=== PATIENT | female | born 1965 | race Caucasian/White ===

== ENCOUNTER 2022-05-26 16:59 | Inpatient (IN) | payer OTHER ==
[~2022-05-26] VITALS: Ht 167.6 cm; Wt 122.5 kg
[2022-05-26] MEDS ORDERED: LIDOCAINE HCL 2% LOCAL INJ 5 ML SDV VIAL INJ ONE (17:33)
[2022-05-26] MEDS ORDERED: METOCLOPRAMIDE HCL 10 MG/2ML VIAL ONE (17:33)
[2022-05-26] MEDS ORDERED: ROCURONIUM BROMIDE 10 MG/ML 5ML VIAL IV ONE (17:33)
[2022-05-26] MEDS ORDERED: NEOSTIGMINE 1 MG/ML 10ML VIAL ONE (17:33)
[2022-05-26] MEDS ORDERED: POVIDONE IODINE 0.05% 0.05 % ML PO ONE (17:33)
[2022-05-26] MEDS ORDERED: KETOROLAC TROMETHAMINE 30 MG/ML VIAL ONE (17:33)
[2022-05-26] MEDS ORDERED: DEXAMETHASONE SOD PHOS INJ 4 MG/ML SDV ONE (17:33)
[2022-05-26] MEDS ORDERED: ONDANSETRON HCL INJ 2MG/ML 2ML 2 MG/ML VIAL ONE (17:33)
[2022-05-26] MEDS ORDERED: SEVOFLURANE INHAL SOLN 250 ML PEN BTL ONE (17:33)
[2022-05-26] MEDS ORDERED: GLYCOPYRROLATE INJ 0.2 MG/ML VIAL ONE (17:33)
[2022-05-26] MEDS ORDERED: PROPOFOL IV EMULSION 10 MG/ML 20 ML VIAL ONE (17:33)
[2022-05-26 18:05] VITALS: BP 135/69
[2022-05-26] MEDS ORDERED: CITALOPRAM HBR40 MG PO (18:12)
[2022-05-26] MEDS ORDERED: TRAZODONE HCL50 MG PO (18:12)
[2022-05-26] MEDS ORDERED: LISINOPRIL20 MG PO (18:12)
[2022-05-26] MEDS ORDERED: FLUTICASONE PRO16 GM INH (18:21)
[2022-05-26] MEDS ORDERED: NP THYROID90 MG PO (18:21)
[2022-05-26] MEDS ORDERED: ONDANSETRON HCL INJ 2MG/ML 2ML 2 MG/ML VIAL IV PRN (18:45)
[2022-05-26] MEDS ORDERED: HYDROMORPHONE 1MG/1ML INJ IV PRN (18:45)
[2022-05-26] MEDS: METRONIDAZOLE 500MG/NS 100ML 100 ML IV SCH (19:06)
[2022-05-26] MEDS: SODIUM CHLORIDE 0.9% 1000ML 1,000 ML IV SCH (19:06)
[2022-05-26] MEDS: HYDROMORPHONE 1MG/1ML INJ IV PRN (19:07)
[2022-05-26 20:00] VITALS: BP 124/72
[2022-05-26] MEDS: CIPROFLOXACIN 400 MG/D5W 200ML 200 ML IV SCH (21:31)
[2022-05-27] VITALS (8 sets, daily range): BP systolic 120–145; BP diastolic 63–96
[2022-05-27] MEDS: HYDROMORPHONE 1MG/1ML INJ IV PRN ×2 (00:21→19:59)
[2022-05-27] MEDS: METRONIDAZOLE 500MG/NS 100ML 100 ML IV SCH ×2 (00:22→06:29)
[2022-05-27] MEDS: SODIUM CHLORIDE 0.9% 1000ML 1,000 ML IV SCH ×3 (03:00→18:11)
[2022-05-27 05:29] LABS: BASOPHILS # (AUTO) 0.1 (0.0-0.1); BASOPHILS % 0.8 % (0.0-1.0); EOSINOPHILS # (AUTO) 0.1 (0.0-0.4); EOSINOPHILS % 1.4 % (0.0-6.0); HEMATOCRIT 41.5 % (34.2-44.1); HEMOGLOBIN 13.5 g/dL (12.0-16.0); LYMPHOCYTES # (AUTO) 0.5 (1.0-3.2); LYMPHOCYTES % 7.8 % (18.0-39.1); MEAN CORPUSCULAR HEMOGLOBIN 30.4 pg (28-32); MEAN CORPUSCULAR HGB CONC 32.5 g/dL (31-35); MEAN CORPUSCULAR VOLUME 93.5 fL (81-99); MONOCYTES % 0.3 % (4.4-11.3); NEUTROPHILS # (AUTO) 5.8 (2.1-6.9); NEUTROPHILS % 88.5 % (38.7-80.0); PLATELET COUNT 112 x10e3/uL (140-360); RED BLOOD COUNT 4.44 x10e6/uL (3.6-5.1); RED CELL DISTRIBUTION WIDTH 13.4 % (11.7-14.4)
[2022-05-27 05:48] LABS: CALCIUM 8.9 mg/dL (8.4-10.2); CREATININE, SERUM 0.81 mg/dL (0.57-1.11)
[2022-05-27] MEDS: ACETAMINOPHEN 1000 MG/100 ML IV PRN ×2 (08:20→19:58)
[2022-05-27] MEDS: CIPROFLOXACIN 400 MG/D5W 200ML 200 ML IV SCH ×2 (09:26→19:58)
[2022-05-27] MEDS ORDERED: BUPIVACAINE 0.5%/EPI 30 ML SDV INJ ONE (10:24)
[2022-05-27] MEDS ORDERED: SUGAMMADEX SODIUM 200 MG/2 ML VIAL IV ONE (13:25)
[2022-05-27] MEDS ORDERED: KETOROLAC TROMETHAMINE 30 MG/ML VIAL IV PRN (13:45)
[2022-05-27] MEDS: CLINDAMYCIN PHOS 900MG/ 50ML 50 ML IV SCH ×2 (15:00→23:12)
[2022-05-28] VITALS (8 sets, daily range): BP systolic 99–152; BP diastolic 57–82
[2022-05-28] MEDS: SODIUM CHLORIDE 0.9% 1000ML 1,000 ML IV SCH ×2 (03:00→14:07)
[2022-05-28] MEDS: HYDROCODONE/APAP 7.5MG-325MG 1 EA TAB PO PRN ×3 (05:56→19:57)
[2022-05-28] MEDS: CLINDAMYCIN PHOS 900MG/ 50ML 50 ML IV SCH ×3 (05:56→21:59)
[2022-05-28 06:19] LABS: BASOPHILS % 0.2 % (0.0-1.0); HEMATOCRIT 37.3 % (34.2-44.1); HEMOGLOBIN 11.5 g/dL (12.0-16.0); LYMPHOCYTES # (AUTO) 0.7 (1.0-3.2); LYMPHOCYTES % 5.6 % (18.0-39.1); MEAN CORPUSCULAR HGB CONC 30.8 g/dL (31-35); MEAN CORPUSCULAR VOLUME 97.4 fL (81-99); MONOCYTES # (AUTO) 0.8 (0.2-0.8); MONOCYTES % 6.5 % (4.4-11.3); NEUTROPHILS # (AUTO) 10.9 (2.1-6.9); NEUTROPHILS % 87.2 % (38.7-80.0); PLATELET COUNT 147 x10e3/uL (140-360); RED BLOOD COUNT 3.83 x10e6/uL (3.6-5.1); RED CELL DISTRIBUTION WIDTH 13.5 % (11.7-14.4)
[2022-05-28 06:44] LABS: ANION GAP 12.7 mmol/L (8-16); CALCIUM 8.2 mg/dL (8.4-10.2); CREATININE, SERUM 0.81 mg/dL (0.57-1.11); POTASSIUM 3.7 mmol/L (3.5-5.1)
[2022-05-28] MEDS: CIPROFLOXACIN 400 MG/D5W 200ML 200 ML IV SCH ×2 (09:38→20:47)
[2022-05-28] MEDS ORDERED: ACETAMINOPHEN 325 MG TAB PO PRN (19:30)
[2022-05-29] VITALS: BP 116/70
[2022-05-29 04:00] VITALS: BP 122/80
[2022-05-29] MEDS: CLINDAMYCIN PHOS 900MG/ 50ML 50 ML IV SCH ×2 (05:29→13:13)
[2022-05-29 05:56] LABS: BASOPHILS % 0.2 % (0.0-1.0); EOSINOPHILS # (AUTO) 0.1 (0.0-0.4); EOSINOPHILS % 1.5 % (0.0-6.0); HEMATOCRIT 36.5 % (34.2-44.1); HEMOGLOBIN 11.3 g/dL (12.0-16.0); LYMPHOCYTES # (AUTO) 1.1 (1.0-3.2); LYMPHOCYTES % 11.6 % (18.0-39.1); MEAN CORPUSCULAR HEMOGLOBIN 30.3 pg (28-32); MEAN CORPUSCULAR VOLUME 97.9 fL (81-99); MONOCYTES # (AUTO) 0.8 (0.2-0.8); MONOCYTES % 8.5 % (4.4-11.3); NEUTROPHILS # (AUTO) 7.4 (2.1-6.9); NEUTROPHILS % 77.8 % (38.7-80.0); PLATELET COUNT 152 x10e3/uL (140-360); RED BLOOD COUNT 3.73 x10e6/uL (3.6-5.1); RED CELL DISTRIBUTION WIDTH 13.3 % (11.7-14.4)
[2022-05-29 06:20] LABS: ALBUMIN 2.7 g/dL (3.5-5.0); ALBUMIN/GLOBULIN RATIO 0.8 (0.8-2.0); ANION GAP 14.5 mmol/L (8-16); CALCIUM 8.5 mg/dL (8.4-10.2); CREATININE, SERUM 0.81 mg/dL (0.57-1.11); POTASSIUM 3.5 mmol/L (3.5-5.1)
[2022-05-29 08:22] VITALS: BP 113/65
[2022-05-29 08:33] VITALS: BP 113/65
[2022-05-29] MEDS: CIPROFLOXACIN 400 MG/D5W 200ML 200 ML IV SCH (09:14)
[2022-05-29] MEDS ORDERED: ONDANSETRON HCL 4 MG ORAL DISINTEGRATING TAB PO PRN (09:15)
[2022-05-29 12:28] VITALS: BP 120/71
[2022-05-29 17:07] VITALS: BP 125/82
== END 2022-05-29 19:45 | disposition home or self-care (01) | DRG 342 ==
LOC: MED/SURG3 17:33 → OBSVTOIN 05-28 09:00
PROVIDERS: ADMIT Family Medicine; ATTEND Family Medicine
PROC: 0DTJ4ZZ Resection of Appendix, Percutaneous Endoscopic Approach (ICD-10-PCS; principal; 2022-05-27 12:08)
DX: K35.891 Other acute appendicitis without perforation, with gangrene (principal); Z68.41 Body mass index [BMI] 40.0-44.9, adult; Z20.822 Contact with and (suspected) exposure to COVID-19; E03.9 Hypothyroidism, unspecified; F32.A Depression, unspecified; I10 Essential (primary) hypertension; E66.01 Morbid (severe) obesity due to excess calories; K57.90 Diverticulosis of intestine, part unspecified, without perforation or abscess without bleeding
CPT/HCPCS: 36415; 80048; 80053; 85025; 87040; 88304; 96360; 96361; 99252; C1766; G0378; J1100; J1170; J1885; J2001; J2405; J2710; J2765; J7030